=== PATIENT | female | born 1995 | race Two or more races ===

== ENCOUNTER 2023-04-21 00:12 | Emergency (ER) | payer OTHER ==
[~2023-04-21] VITALS: Ht 154.9 cm; Wt 49.9 kg
[~2023-04-21 00:12] MED LIST: ABILIFY10 MG; TYLENOL32 MG/ML
[2023-04-21] MEDS ORDERED: ONDANSETRON HCL 2 MG/ML VIAL IV STA (01:17)
[2023-04-21] MEDS ORDERED: RINGERS SOLUTION,LACTATED 1,000 ML IV STA (01:17)
[2023-04-21 02:07] LABS: HEMATOCRIT 35.4 % (36.0-45.00); HEMOGLOBIN 12.2 g/dL (12.0-15.00); MEAN CELL VOLUME 90.5 fL (80.00-100.00); MEAN CORPUSCULAR HEMOGLOBIN 31.3 pg (27.00-32.0); MEAN CORPUSCULAR HGB CONC 34.6 g/dl (32.0-36.0); PLATELET COUNT 310 K/uL (150-450); RED BLOOD COUNT 3.91 M/uL (4.00-6.00); RED CELL DISTRIBUTION WIDTH 12.4 % (11.5-14.5)
[2023-04-21 02:40] LABS: CALCIUM 8.9 mg/dL (8.5-10.1); CREATININE SERUM 0.53 mg/dL (0.55-1.02); GFR 137.36; POTASSIUM 3.68 mEq/L (3.5-5.1)
== END 2023-04-21 03:07 | disposition home or self-care (01) ==
LOC: ER 00:12
DX: O20.0 Threatened abortion (principal); Z3A.01 Less than 8 weeks gestation of pregnancy; Z88.8 Allergy status to other drugs, medicaments and biological substances

== ENCOUNTER 2023-11-16 13:50 | Inpatient (IN) | payer OTHER ==
[~2023-11-16] VITALS: Ht 154.9 cm; Wt 70.3 kg
[2023-11-16 14:27] LABS: HEMOGLOBIN 10.7 g/dL (12.0-15.00); MEAN CELL VOLUME 90.5 fL (80.00-100.00); MEAN CORPUSCULAR HEMOGLOBIN 31.3 pg (27.00-32.0); MEAN CORPUSCULAR HGB CONC 34.6 g/dl (32.0-36.0); PLATELET COUNT 305 K/uL (150-450); RED BLOOD COUNT 3.42 M/uL (4.00-6.00); RED CELL DISTRIBUTION WIDTH 12.8 % (11.5-14.5)
[2023-11-16 14:27] LABS: PH,URINE 5.5 (5.0-8.0); URINE APPEARANCE Clear; URINE BILIRRUBIN Negative (NEGATIVE); URINE BLOOD Negative; URINE COLOR Dark Yellow; URINE GLUCOSE Negative (NEGATIVE); URINE KETONE Trace (NEGATIVE); URINE LEUKOCYTE Negative; URINE NITRATE Negative; URINE PROTEIN Negative (NEGATIVE)
[2023-11-16 14:28] LABS: URINE BACTERIA 76.8 uL (0.0-1933); URINE EPITHELIAL CELLS 9.5 uL (0.0-38.8); URINE WBC 2.4 uL (0.0-23.2)
[2023-11-16 14:31] LABS: URINE CAST 0.15 uL (0.0-1.40); URINE RBC 0.9 uL (0.0-20.8)
[2023-11-16 14:56] LABS: INR < 0.93; PARTIAL THROMBOPLASTIN TIME 27.4 SECONDS (22.0-34.0); PROTHROMBIN TIME 10.1 SECONDS (9.0-11.5)
[2023-11-16 15:48] LABS: ALBUMIN 2.7 gm/dL (3.4-5.0); BILIRUBIN TOTAL 0.64 mg/dL (0.3-1.2); CALCIUM 9.4 mg/dL (8.5-10.1); CREATININE SERUM 0.46 mg/dL (0.55-1.02); GFR 161.75; GLOBULINA 3.8 G/DL (2.4-3.5); POTASSIUM 4.04 mEq/L (3.5-5.1); TOTAL PROTEIN 6.5 gm/dL (6.4-8.2)
[2023-11-23] MEDS ORDERED: ZOFRAN8 MG PO (17:16)
[2023-11-23] MEDS ORDERED: PRENATAL TABLE1 EAC4 PO (17:17)
[2023-11-23 20:33] VITALS: BP 126/81
[2023-11-23 23:45] VITALS: BP 110/60
[2023-11-24] VITALS (10 sets, daily range): BP systolic 115–136; BP diastolic 66–86
[2023-11-24] MEDS ORDERED: MISOPROSTOL 50 MCG TABLET VAG NR (08:30)
[2023-11-24] MEDS ORDERED: ERYTHROMYCIN BASE OPHT 1GM EACH TUBE OP ONE ×2 (11:29→14:45)
[2023-11-24] MEDS ORDERED: OXYTOCIN 20 UNITS/500ML RL PIGGYBAG IV ONE (11:29)
[2023-11-24] MEDS ORDERED: CHLORHEXIDINE GLUCONATE 120 ML BOTTLE TOP ONE (11:29)
[2023-11-24] MEDS ORDERED: OXYTOCIN 20 UNITS/1000ML RL PIGGYBAG IV ONE (11:29)
[2023-11-24] MEDS ORDERED: LIDOCAINE HCL 1% 10ML VIAL ONE (11:30)
[2023-11-24] MEDS ORDERED: OXYTOCIN 500 ML IV SCH (11:45)
[2023-11-24] MEDS ORDERED: PROMETHAZINE HCL 25 MG/ML AMPUL ONE (12:52)
[2023-11-24] MEDS ORDERED: MEPERIDINE HCL/PF 25 MG/ML VIAL IV ONE (13:00)
[2023-11-24] MEDS ORDERED: PROMETHAZINE HCL 25 MG/ML AMPUL IV ONE (13:00)
[2023-11-24] MEDS ORDERED: CHLORHEXIDINE GLUCONATE 120 ML BOTTLE TOP SCH (14:30)
[2023-11-24] MEDS ORDERED: ACETAMINOPHEN 500 MG GEL..CAP PO PRN (14:30)
[2023-11-24] MEDS ORDERED: OXYTOCIN 1,000 ML IV SCH (14:30)
[2023-11-24] MEDS ORDERED: DOCUSATE SODIUM 100MG CAP PO SCH (17:00)
[2023-11-24 20:35] LABS: HEMATOCRIT 31.2 % (36.0-45.00); HEMOGLOBIN 10.6 g/dL (12.0-15.00); MEAN CELL VOLUME 89.4 fL (80.00-100.00); MEAN CORPUSCULAR HEMOGLOBIN 30.3 pg (27.00-32.0); MEAN CORPUSCULAR HGB CONC 33.9 g/dl (32.0-36.0); PLATELET COUNT 298 K/uL (150-450); RED BLOOD COUNT 3.49 M/uL (4.00-6.00); RED CELL DISTRIBUTION WIDTH 13.5 % (11.5-14.5)
[2023-11-25 01:30] VITALS: BP 116/62
[2023-11-25 04:17] VITALS: BP 112/73
[2023-11-25 08:39] VITALS: BP 117/77
[2023-11-25 17:45] VITALS: BP 115/74
[2023-11-26 02:01] VITALS: BP 114/76
[2023-11-26 08:00] VITALS: BP 121/80
== END 2023-11-26 14:34 | disposition home or self-care (01) | DRG 807 ==
LOC: LDR 11-23 16:00 → OB/GYN 11-25 01:41
PROVIDERS: ADMIT General Practice; ATTEND General Practice
PROC: 3E0P7VZ Introduction of Hormone into Female Reproductive, Via Natural or Artificial Opening (ICD-10-PCS; 2023-11-23)
PROC: 4A1HXCZ Monitoring of Products of Conception, Cardiac Rate, External Approach (ICD-10-PCS; 2023-11-23)
PROC: 10E0XZZ Delivery of Products of Conception, External Approach (ICD-10-PCS; principal; 2023-11-24)
PROC: 3E033VJ Introduction of Other Hormone into Peripheral Vein, Percutaneous Approach (ICD-10-PCS; 2023-11-24)
DX: O41.03X0 Oligohydramnios, third trimester, not applicable or unspecified (principal); Z37.0 Single live birth; Z3A.38 38 weeks gestation of pregnancy; Z20.822 Contact with and (suspected) exposure to COVID-19